=== PATIENT | male | born 1990 ===

== ENCOUNTER 2018-11-11 10:11 | Emergency (ER) | payer OTHER ==
[2018-11-11] MEDS ORDERED: Ketorolac 30 MG/ML SDV IM ONE (10:55)
--- NOTE | 2018-11-11 11:08 | EDM.PDOC ---
<Jo Sibley - Last Filed: 11/11/18 11:09> ED HPI GENERAL MEDICAL PROBLEM - General Chief Complaint: Back Pain or Injury Stated Complaint: THROWN OUT BACK AT WORK Time Seen by Provider: 11/11/18 11:03 - History of Present Illness INITIAL COMMENTS - FREE TEXT/NARRATIVE: This is Dr. Sibley dictating an addendum note as I am the supervising physician on this case. Agree with history and physical as above and the pain is reproducible. We'll proceed with symptomatic care and behavioral management instructions for lifting and good body mechanics. - Related Data Allergies Allergy/AdvReac Type Severity Reaction Status Date / Time No Known Allergies Allergy Verified 11/11/18 10:36 Home Meds: Home Meds Cyclobenzaprine [Flexeril] 10 mg PO BID PRN #15 tab 11/11/18 [Rx] Diclofenac Sodium [Voltaren] 75 mg PO BIDMEALS #30 tab.cr 11/11/18 [Rx] Fish Oil/[place]-3 Fatty Acids [Fish Oil] 11/11/18 [History] Course - Vital Signs Last Recorded V/S: Last Vital Signs Temp 36.4 C 11/11/18 10:33 Pulse 86 11/11/18 10:33 Resp 18 11/11/18 10:33 BP 118/78 11/11/18 10:33 Pulse Ox 98 11/11/18 10:33 - Orders/Labs/Meds Meds: Medications Discontinued Medications Generic Name Dose Route Start Last Admin Trade Name Freq PRN Reason Stop Dose Admin Cyclobenzaprine HCl 10 mg 11/11/18 11:35 11/11/18 11:48 Flexeril PO 11/11/18 11:36 10 mg ONETIME ONE Administration Ketorolac Tromethamine 30 mg 11/11/18 10:55 11/11/18 11:07 Toradol IM 11/11/18 10:56 30 mg ONETIME ONE Administration Departure - Departure Disposition: Home, Self-Care 01 Clinical Impression: Muscle spasm of back - Discharge Information Prescriptions: Cyclobenzaprine [Flexeril] 10 mg PO BID PRN #15 tab PRN Reason: Muscle Spasm Diclofenac Sodium [Voltaren] 75 mg PO BIDMEALS #30 tab.cr Referrals: PCP,None [Primary Care Provider] - Forms: ED Department Discharge Additional Instructions: The following information is given to patients seen in the emergency department who are being discharged to home. This information is to outline your options for follow-up care. We provide all patients seen in our emergency department with a follow-up referral. The need for follow-up, as well as the timing and circumstances, are variable depending upon the specifics of your emergency department visit. If you don't have a primary care physician on staff, we will provide you with a referral. We always advise you to contact your personal physician following an emergency department visit to inform them of the circumstance of the visit and for follow-up with them and/or the need for any referrals to a consulting specialist. The emergency department will also refer you to a specialist when appropriate. This referral assures that you have the opportunity for followup care with a specialist. All of these measure are taken in an effort to provide you with optimal care, which includes your followup. Under all circumstances we always encourage you to contact your private physician who remains a resource for coordinating your care. When calling for followup care, please make the office aware that this follow-up is from your recent emergency room visit. If for any reason you are refused follow-up, please contact the [facility] emergency department at and ask to speak to the emergency department charge nurse. [facility] Primary care- [place] [address] Use ice to area for discomfort and take medications as directed. Please follow- up per your employer's directions with occupational health and also follow-up in our clinic for reevaluation and further care next week. Return to ER as needed and as discussed <Edison Aragon - Last Filed: 11/11/18 11:55> ED HPI GENERAL MEDICAL PROBLEM - History of Present Illness INITIAL COMMENTS - FREE TEXT/NARRATIVE: 28 y/o male here for back pain. 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 Pain was rated 8/10. That lasted few seconds and then improved with mobility. He did not take any NSAIDs. This morning pain was worse on his back. Denies any saddle anesthesia or difficulty ambulating. No history of trauma to back or surgeries. left lower back Pain Score (Numeric/FACES): 5 Past Medical History Other Hematologic History: had a blood clot in left arm 2 years ago - Infectious Disease History Infectious Disease History: Reports: Chicken Pox - Past Surgical History Other Musculoskeletal Surgeries/Procedures:: ankle surgery Social & Family History - Family History Family Medical History: Noncontributory - Tobacco Use Smoking Status *Q: Current Every Day Smoker Years of Tobacco use: 1 Packs/Tins Daily: 0.2 - Recreational Drug Use Recreational Drug Use: No ED ROS GENERAL - Review of Systems Review Of Systems: ROS reveals no pertinent complaints other than HPI. ED EXAM,LOWER BACK PAIN/INJURY - Physical Exam Exam: See Below General Appearance: Alert, WD/WN, No Apparent Distress Respiratory/Chest: No Respiratory Distress, Lungs Clear Cardiovascular: Regular Rate, Rhythm Back Exam: Other (No spinous tenderness. Tender on left lumbar paraspinal muscle. Sensation and strength intact in lower extremities.) Course - Vital Signs Text/Narrative:: gave toradol 30 mg IM once. Feeling better but still tense muscle. Will give Flexeril 10 mg PO once. Departure - Departure Time of Disposition: 11:54 - Discharge Information *PRESCRIPTION DRUG MONITORING PROGRAM REVIEWED*: Not Applicable *COPY OF PRESCRIPTION DRUG MONITORING REPORT IN PATIENT ZE: Not Applicable
[2018-11-11] MEDS ORDERED: Cyclobenzaprine 10 MG Tab PO ONE (11:35)
== END 2018-11-11 12:00 | disposition home or self-care (01) ==
LOC: MW.ED 10:11
DX: M62.830 Muscle spasm of back (principal); F17.210 Nicotine dependence, cigarettes, uncomplicated
CPT/HCPCS: 96372; 99283; A9270; J1885